=== PATIENT | male | born 1995 | race Caucasian/White ===

== ENCOUNTER 2020-10-12 16:55 | Emergency (ER) | payer OTHER ==
[~2020-10-12] VITALS: Ht 185.4 cm; Wt 117.9 kg
[2020-10-12] MEDS ORDERED: HYDROCODON-ACE1 EAC7 PO (19:19)
[2020-10-12] MEDS ORDERED: IBUPROFEN 800800 M1 PO (19:19)
[2020-10-12 19:42] VITALS: BP 162/75
== END 2020-10-12 19:42 | disposition home or self-care (01) ==
LOC: M.ERS 16:55
DX: S42.032A Displaced fracture of lateral end of left clavicle, initial encounter for closed fracture (principal); S01.81XA Laceration without foreign body of other part of head, initial encounter; V86.59XA Driver of other special all-terrain or other off-road motor vehicle injured in nontraffic accident, initial encounter; Y93.55 Activity, bike riding; Y92.413 State road as the place of occurrence of the external cause; Y99.9 Unspecified external cause status